=== PATIENT | male | born 1965 | race Caucasian/White ===

== ENCOUNTER 2019-09-12 10:00 | Inpatient (IN) ==
[2019-09-12 10:58] LABS: Basophils % 0.6 %; Eosinophils % 0.7 %; Hematocrit 47.6 % (37.5-50.1); Immature Granulocytes % 0.6 % (0-4); Lymphocytes # 1.2 K/mcL (0.6-4.6); Lymphocytes % 23.2 %; Mean Corpuscular HGB Conc 35.7 g/dL (31.6-35.5); Mean Corpuscular Hemoglobin 33.6 pg (28.0-33.3); Mean Corpuscular Volume 94.1 fL (83.0-100.0); Mean Platelet Volume 10.8 fL (9.4-12.4); Monocytes # 0.4 K/mcL (0.0-1.3); Monocytes % 7.3 %; Neutrophils # 3.6 K/mcL (1.6-8.9); Platelet Count 239 K/mcL (140-400); Red Blood Count 5.06 M/mcL (4.19-5.50); Segmented Neutrophils % 67.6 %; White Blood Count 5.4 K/mcL (4.3-11.1)
[2019-09-12 11:19] LABS: Alanine Aminotransferase 26 Units/L (7-52); Albumin 4.6 g/dL (3.5-5.7); Albumin/Globulin Ratio 1.7 (1.1-2.2); Alkaline Phosphatase 289 Units/L (34-104); Amylase 57 Units/L (29-103); Aspartate Amino Transferase 20 Units/L (13-39); BUN/Creatinine Ratio 10 (6-26); Bilirubin,Direct 0.1 mg/dL (0.0-0.2); Bilirubin,Indirect 0.4 mg/dL (0.0-1.0); Bilirubin,Total 0.5 mg/dL (0.3-1.0); Blood Urea Nitrogen 23 mg/dL (6-20); Calcium 8.7 mg/dL (8.6-10.3); Carbon Dioxide 23 mEq/L (23-29); Chloride 107 mEq/L (98-107); Globulin 2.7 g/dL (2.4-3.5); Glucose 107 mg/dL (70-105); Lipase 46 Units/L (11-82); Osmolality,Calculated 292 (280-300); Potassium 3.2 mEq/L (3.5-5.1); Sodium 139 mEq/L (136-145); Total Protein 7.3 g/dL (6.4-8.9); eGFR For African Americans 34 (> 60); eGFR For Non-African Americans 28 (> 60)
[2019-09-12 12:26] LABS: Troponin I < 0.03 ng/mL (< 0.04)
[2019-09-12 13:22] LABS: Bilirubin,Urine Negative (Negative); Blood,Urine Trace (Negative); Clarity,Urine Clear (Clear); Color,Urine Yellow (Yellow); Glucose,Urine (UA) >=1000 mg/dL (Normal); Ketones,Urine Trace mg/dL (Negative); Leukocyte Esterase,Urine Negative (Negative); Nitrite,Urine Negative (Negative); Protein,Urine 100 mg/dL (Neg-Trace); Specific Gravity,Urine 1.029 (1.010-1.025); Urobilinogen,Urine Normal (Normal)
[2019-09-12 13:25] LABS: Bacteria,Urine None Seen per hpf (None-Few); RBC,Urine 0-3 per hpf (0-3); Squamous Epithelial Cell,Urine Many per lpf (None-Few); WBC,Urine 0-3 per hpf (0-3)
[2019-09-12] MEDS ORDERED: *HR* Heparin 5,000 UNIT/ML VIAL IVP PRN (13:44)
[2019-09-12] MEDS ORDERED: *HR* Heparin 5,000 UNIT/ML VIAL IVP ONE (13:44)
[2019-09-12 13:45] LABS: Hyaline Casts,Urine Few per lpf (None-Few)
[2019-09-12] MEDS ORDERED: Naloxone 0.4 MG/ML INJ IVP PRN (14:04)
[2019-09-12] MEDS ORDERED: Ondansetron 4 MG/2 ML VIAL IVP PRN (14:04)
[2019-09-12] MEDS ORDERED: Ringers Solution, Lactated 1,000 ML IVC SCH (14:15)
[2019-09-12 14:19] LABS: Hemoglobin 15.9 g/dL (12.9-16.9); Mean Corpuscular HGB Conc 36.1 g/dL (31.6-35.5); Mean Corpuscular Hemoglobin 33.6 pg (28.0-33.3); Mean Platelet Volume 10.7 fL (9.4-12.4); Platelet Count 219 K/mcL (140-400); Red Blood Count 4.73 M/mcL (4.19-5.50); Red Cell Distribution Width 12.9 % (11.5-14.5); White Blood Count 5.2 K/mcL (4.3-11.1)
[2019-09-12 14:27] LABS: Heparin anti-factor XA UFH 0.56 IU/mL (0.30-0.70)
[2019-09-12 14:28] LABS: INR 1.1; Prothrombin Time 12.6 Seconds (9.4-12.1)
[2019-09-12] MEDS: Heparin 25,000 UNIT/250 ML D5W 25,000 UNIT/250 ML IV.SOLN IVC SCH (16:08)
[2019-09-12] MEDS ORDERED: *HR* Labetalol 20 MG/4 ML SYRINGE IVP PRN (16:14)
[2019-09-12] MEDS ORDERED: 0.9 % Sodium Chloride w KCl 40 MEQ/1,000 ML MLS IVC SCH (23:30)
[2019-09-13 03:35] LABS: Sodium, Urine 143.7 mEq/L
[2019-09-13 05:26] LABS: Basophils % 0.4 %; Eosinophils # 0.1 K/mcL (0.0-0.6); Eosinophils % 1.1 %; Hematocrit 42.7 % (37.5-50.1); Hemoglobin 15.1 g/dL (12.9-16.9); Immature Granulocytes % 0.6 % (0-4); Lymphocytes # 1.5 K/mcL (0.6-4.6); Lymphocytes % 32.5 %; Mean Corpuscular HGB Conc 35.4 g/dL (31.6-35.5); Mean Corpuscular Hemoglobin 33.3 pg (28.0-33.3); Mean Corpuscular Volume 94.1 fL (83.0-100.0); Monocytes # 0.4 K/mcL (0.0-1.3); Monocytes % 8.9 %; Neutrophils # 2.7 K/mcL (1.6-8.9); Platelet Count 203 K/mcL (140-400); Red Blood Count 4.54 M/mcL (4.19-5.50); Red Cell Distribution Width 12.9 % (11.5-14.5); Segmented Neutrophils % 56.5 %; White Blood Count 4.7 K/mcL (4.3-11.1)
[2019-09-13 05:51] LABS: Calcium 8.4 mg/dL (8.6-10.3); Magnesium 2.2 mg/dL (1.6-2.6); Potassium 3.2 mEq/L (3.5-5.1)
[2019-09-13] MEDS: Potassium Chloride Elixir 20 MEQ/15 ML UDC PO SCH ×2 (09:22→12:41)
[2019-09-13] MEDS: EFAVIRENZ PO SCH (10:57)
[2019-09-13] MEDS: TENOFO PO SCH (10:57)
[2019-09-13] MEDS: EMTRICITABINE PO SCH (10:57)
[2019-09-13] MEDS: Ringers Solution, Lactated 1,000 ML IVC SCH (12:50)
[2019-09-13] MEDS: Heparin 25,000 UNIT/250 ML D5W 25,000 UNIT/250 ML IV.SOLN IVC SCH (16:09)
[2019-09-13] MEDS ORDERED: *HR* Warfarin 5 MG TABLET PO ONE (18:00)
[2019-09-13] MEDS ORDERED: Warfarin perPT PO PRN (18:00)
[2019-09-13 18:24] LABS: Potassium,Urine 27.4 mEq/L
[2019-09-14] MEDS: *HR* Heparin 5,000 UNIT/ML VIAL IVP PRN (00:24)
[2019-09-14] MEDS: Ringers Solution, Lactated 1,000 ML IVC SCH ×2 (02:48→16:12)
[2019-09-14 06:10] LABS: Hematocrit 40.4 % (37.5-50.1); Hemoglobin 14.8 g/dL (12.9-16.9); Mean Corpuscular HGB Conc 36.6 g/dL (31.6-35.5); Mean Corpuscular Hemoglobin 34.1 pg (28.0-33.3); Mean Corpuscular Volume 93.1 fL (83.0-100.0); Mean Platelet Volume 10.4 fL (9.4-12.4); Platelet Count 189 K/mcL (140-400); Red Blood Count 4.34 M/mcL (4.19-5.50); Red Cell Distribution Width 12.8 % (11.5-14.5); White Blood Count 4.1 K/mcL (4.3-11.1)
[2019-09-14 06:13] LABS: Prothrombin Time 11.9 Seconds (9.4-12.1)
[2019-09-14 06:28] LABS: Calcium 8.4 mg/dL (8.6-10.3); Phosphorous 1.8 mg/dL (2.7-4.5); Potassium 3.4 mEq/L (3.5-5.1)
[2019-09-14] MEDS: Potassium Chloride Elixir 20 MEQ/15 ML UDC PO SCH ×2 (10:00→13:36)
[2019-09-14] MEDS: EFAVIRENZ PO SCH (10:44)
[2019-09-14] MEDS: EMTRICITABINE PO SCH (10:44)
[2019-09-14] MEDS: TENOFO PO SCH (10:44)
[2019-09-14] MEDS: Heparin 25,000 UNIT/250 ML D5W 25,000 UNIT/250 ML IV.SOLN IVC SCH (17:00)
[2019-09-14] MEDS ORDERED: *HR* Warfarin 5 MG TABLET PO ONE (18:00)
[2019-09-15 02:01] LABS: Prothrombin Time 11.9 Seconds (9.4-12.1)
[2019-09-15 02:19] LABS: Calcium 8.5 mg/dL (8.6-10.3); Potassium 3.5 mEq/L (3.5-5.1)
[2019-09-15] MEDS: Ringers Solution, Lactated 1,000 ML IVC SCH (04:24)
[2019-09-15] MEDS: EFAVIRENZ PO SCH (09:22)
[2019-09-15] MEDS: EMTRICITABINE PO SCH (09:22)
[2019-09-15] MEDS: TENOFO PO SCH (09:22)
[2019-09-15] MEDS: Heparin 25,000 UNIT/250 ML D5W 25,000 UNIT/250 ML IV.SOLN IVC SCH (17:21)
[2019-09-15] MEDS ORDERED: *HR* Warfarin 5 MG TABLET PO ONE (18:00)
[2019-09-15] MEDS: *HR* Heparin 5,000 UNIT/ML VIAL IVP PRN (19:48)
[2019-09-16 02:28] LABS: Calcium 8.6 mg/dL (8.6-10.3); Potassium 4.1 mEq/L (3.5-5.1)
[2019-09-16 02:30] LABS: INR 1.3; Prothrombin Time 14.5 Seconds (9.4-12.1)
[2019-09-16 02:50] LABS: Activated Partial Thrombo Time 127.1 Seconds (26.0-36.0)
[2019-09-16] MEDS: Ringers Solution, Lactated 1,000 ML IVC SCH (15:42)
[2019-09-16] MEDS: Heparin 25,000 UNIT/250 ML D5W 25,000 UNIT/250 ML IV.SOLN IVC SCH (17:02)
[2019-09-16] MEDS ORDERED: *HR* Warfarin 5 MG TABLET PO ONE (18:00)
[2019-09-16 19:54] LABS: Urine Collection Volume RANDOM mL
[2019-09-16 20:47] LABS: Kappa Qnt Free Light Chains 2.75 mg/dL (0.33-1.94); Lambda Qnt Free Light Chains 2.69 mg/dL (0.57-2.63)
[2019-09-17 03:02] LABS: Calcium 8.6 mg/dL (8.6-10.3); Phosphorous 2.5 mg/dL (2.7-4.5); Potassium 4.3 mEq/L (3.5-5.1)
[2019-09-17] MEDS: Ringers Solution, Lactated 1,000 ML IVC SCH ×2 (03:53→16:15)
[2019-09-17 09:05] LABS: INR 1.8; Prothrombin Time 20.3 Seconds (9.4-12.1)
[2019-09-17 15:00] LABS: Uric Acid 2.6 mg/dL (2.3-7.6)
[2019-09-17 17:05] LABS: Sodium, Urine 94.5 mEq/L
[2019-09-17] MEDS ORDERED: EMTRICITABINE PO SCH (18:00)
[2019-09-17] MEDS ORDERED: *HR* Warfarin 5 MG TABLET PO ONE (18:00)
[2019-09-17] MEDS ORDERED: BICTEGRAVIR PO SCH (18:00)
[2019-09-17] MEDS ORDERED: [UNRECOGNIZED DRUG - OTHER] PO SCH (18:00)
[2019-09-17] MEDS: Heparin 25,000 UNIT/250 ML D5W 25,000 UNIT/250 ML IV.SOLN IVC SCH (18:37)
[2019-09-18 05:40] LABS: INR 2.4; Prothrombin Time 27.3 Seconds (9.4-12.1)
[2019-09-18 05:54] LABS: Calcium 8.7 mg/dL (8.6-10.3); Phosphorous 2.2 mg/dL (2.7-4.5); Potassium 4.1 mEq/L (3.5-5.1)
[2019-09-18] MEDS: Ringers Solution, Lactated 1,000 ML IVC SCH (05:55)
[2019-09-18 10:32] LABS: Alpha 2 Globulin (PEP) 0.43 g/dL (0.48-1.05); Beta Globulin (PEP) 0.67 g/dL (0.48-1.10)
[2019-09-18 11:09] VITALS: BP 126/82
[2019-09-18 11:20] LABS: IFE Reflexed IFE Done
[2019-09-18 11:21] LABS: Immunoglobulin A 286 mg/dL (68-408); Immunoglobulin G 878 mg/dL (768-1632); Immunoglobulin M 79 mg/dL (35-263)
[2019-09-18 11:30] LABS: Vitamin D 25 Hydroxy 19 ng/mL (30-80)
[2019-09-18] MEDS ORDERED: Ergocalciferol (VIT D2) 50,000 UNIT (1.25MG) CAP PO SCH (12:15)
[2019-09-18 14:39] LABS: Hepatitis B Surface Antibody 34.12 mIU/mL
[2019-09-18 14:52] LABS: Hepatitis B Surface Antigen Nonreactive (Nonreactive)
[2019-09-18] MEDS ORDERED: *HR* Warfarin 5 MG TABLET PO ONE (18:00)
== END 2019-09-18 17:06 | disposition home or self-care (01) | DRG 300 ==
LOC: EMEROOARM 10:00 → 3BNU 10:00 → SUATTDRO 16:18 → 3BNU 17:02 → SUATTDRO 09-14 12:37
PROVIDERS: ADMIT Internal Medicine; ATTEND Internal Medicine